=== PATIENT | male | born 1980 | race Caucasian/White ===

== ENCOUNTER 2020-07-09 12:24 | Emergency (ER) | payer SELFPAY ==
[~2020-07-09] VITALS: Ht 180.3 cm; Wt 84.1 kg
[2020-07-09 12:25] VITALS: BP 172/107
--- NOTE | 2020-07-09 12:37 | PHYS DOC ---
Past History Past Medical History: Hypertension Past Surgical History: Appendectomy Smoking: Cigarettes Alcohol Use: Heavy Drug Use: Cocaine, Marijuana General Adult EDM: Chief Complaint: CHEST PAIN HPI: HPI: Patient is a 39-year-old male who presented to ER today for evaluation of substernal chest pain started at 7 AM this morning that radiated to his left shoulder and arm. Patient denies any nausea vomiting, no sweating, no trouble breathing. Patient denies any cough or fever. Patient denies any abdominal pain. Patient denied being exposed to anybody who tested positive for COVID-19. Patient denies any family history of heart disease, no history of blood clot disorder. Patient denied travel anywhere recently. Patient is a smoker, he also admitted abusing cocaine but has not used any cocaine for the last 7 days. Patient is a heavy drinker. Review of Systems: Review of Systems: Constitutional: Denies fever or chills Eyes: Denies change in visual acuity HENT: Denies nasal congestion or sore throat Respiratory: Denies cough or shortness of breath Cardiovascular: Positive for chest pain, denies any edema. GI: Denies abdominal pain, nausea, vomiting, bloody stools or diarrhea : Denies dysuria Musculoskeletal: Denies back pain or joint pain Integument: Denies rash Neurologic: Denies headache, focal weakness or sensory changes Endocrine: Denies polyuria or polydipsia Lymphatic: Denies swollen glands Psychiatric: Denies depression or anxiety Heart Score: HEART Score for Chest Pain: HEART Score for Chest Pain Response (Comments) Value History Slighlty/Non-Suspicious 0 ECG Normal 0 Age < 45 0 Risk Factors 1 or 2 Risk Factors 1 Troponin < Normal Limit 0 Total 1 Risk Factors: Risk Factors: DM, Current or recent (<one month) smoker, HTN, HLP, family history of CAD, obesity. Risk Scores: Score 0 - 3: 2.5% MACE over next 6 weeks - Discharge Home Score 4 - 6: 20.3% MACE over next 6 weeks - Admit for Clinical Observation Score 7 - 10: 72.7% MACE over next 6 weeks - Early Invasive Strategies Physical Exam: PE: Constitutional: Well developed, well nourished, no acute distress, non-toxic appearance. [] HENT: Normocephalic, atraumatic, bilateral external ears normal, oropharynx moist, no oral exudates, nose normal. [] Eyes: PERRLA, EOMI, conjunctiva normal, no discharge. [] Neck: Normal range of motion, no tenderness, supple, no stridor. [] Cardiovascular:Heart rate regular rhythm, no murmur [] Lungs & Thorax: Bilateral breath sounds clear to auscultation [] Abdomen: Bowel sounds normal, soft, no tenderness, no masses, no pulsatile masses. [] Skin: Warm, dry, no erythema, no rash. [] Back: No tenderness, no CVA tenderness. [] Extremities: No tenderness, no cyanosis, no clubbing, ROM intact, no edema. [] Neurologic: Alert and oriented X 3, normal motor function, normal sensory function, no focal deficits noted. [] Psychologic: Affect normal, judgement normal, mood normal. [] Current Patient Data: Labs: Laboratory Tests Test 07/09/20 12:43 07/09/20 13:38 White Blood Count 8.5 x10^3/uL Red Blood Count 4.49 x10^6/uL Hemoglobin 15.4 g/dL Hematocrit 44.3 % Mean Corpuscular Volume 99 fL Mean Corpuscular Hemoglobin 34 pg Mean Corpuscular Hemoglobin Concent 35 g/dL Red Cell Distribution Width 12.8 % Platelet Count 293 x10^3/uL Neutrophils (%) (Auto) 53 % Lymphocytes (%) (Auto) 34 % Monocytes (%) (Auto) 10 % Eosinophils (%) (Auto) 2 % Basophils (%) (Auto) 1 % Neutrophils # (Auto) 4.6 x10^3uL Lymphocytes # (Auto) 2.9 x10^3/uL Monocytes # (Auto) 0.8 x10^3/uL Eosinophils # (Auto) 0.1 x10^3/uL Basophils # (Auto) 0.1 x10^3/uL Prothrombin Time 10.4 SEC Prothromb Time International Ratio 1.0 Activated Partial Thromboplast Time 28 SEC Sodium Level 141 mmol/L Potassium Level 4.0 mmol/L Chloride Level 105 mmol/L Carbon Dioxide Level 24 mmol/L Anion Gap 12 Blood Urea Nitrogen 14 mg/dL Creatinine 1.1 mg/dL Estimated GFR (Cockcroft-Gault) 74.5 BUN/Creatinine Ratio 13 Glucose Level 94 mg/dL Calcium Level 8.6 mg/dL Magnesium Level 2.1 mg/dL Total Bilirubin 0.3 mg/dL Aspartate Amino Transf (AST/SGOT) 20 U/L Alanine Aminotransferase (ALT/SGPT) 27 U/L Alkaline Phosphatase 79 U/L Troponin I Quantitative < 0.017 ng/mL [id number] Natriuretic Peptide 40 pg/mL Total Protein 7.9 g/dL Albumin 4.1 g/dL Albumin/Globulin Ratio 1.1 Lipase 136 U/L Ethyl Alcohol Level 15 mg/dL Urine Collection Type Unknown Urine Color Yellow Urine Clarity Clear Urine pH 7.0 Urine Specific Veblen 1.025 Urine Protein Neg Urine Glucose (UA) Neg mg/dL Urine Ketones (Stick) Neg mg/dL Urine Blood Neg Urine Nitrite Neg Urine Bilirubin Neg Urine Urobilinogen Dipstick 0.2 mg/dL Urine Leukocyte Esterase Neg Urine RBC 0 /HPF Urine WBC 1-4 /HPF Urine Bacteria 0 /HPF Urine Opiates Screen Neg Urine Methadone Screen Neg Urine Barbiturates Neg Urine Phencyclidine Screen Neg Urine Amphetamine/Methamphetamine Neg Urine Benzodiazepines Screen Neg Urine Cocaine Screen Pos Urine Cannabinoids Screen Pos Urine Ethyl Alcohol Pos EKG: EKG: EKG was done at 1230, heart rate of 78 bpm, normal sinus rhythm, no ST segment elevation. Normal conduction, no ectopy. [] Radiology/Procedures: Radiology/Procedures: [][address] [address] IMAGING REPORT Signed PATIENT: CIPRIANO FIELDS ACCOUNT: [id number] : 1980 LOCATION: ER AGE: 39 SEX: M EXAM STATUS: REG ER ORD. PHYSICIAN: LON COULTER DO REASON: chest pain PROCEDURE: PORTABLE CHEST 1V EXAMINATION: PORTABLE CHEST 1V CLINICAL HISTORY: Reason: chest pain / Spl. Instructions: / History: EXAM DATE/TIME: 07/09/2020 12:28 PM COMPARISON: None FINDINGS: Lines, tubes, and devices: None. Cardiomediastinal silhouette: Within normal limits. Lungs and pleura: Question minimal patchy opacities in the lower lung zones which favors subsegmental atelectasis. No large focal airspace consolidation, pleural effusion, or pneumothorax. Bones and soft tissues: No acute osseous abnormality. IMPRESSION: No definitive evidence of acute cardiopulmonary abnormality. Electronically signed by: Nithin Ye DO (07/09/2020 1:23 PM) [id number] DICTATED AND SIGNED BY: NITHIN YE DO DATE: 07/09/20 1323 CC: [facility]; LON COULTER DO ~ Course & Med Decision Making: Course & Med Decision Making Pertinent Labs and Imaging studies reviewed. (See chart for details) Patient is a 39-year-old male who was evaluated in the ER due to chest pain, his EKG and lab work came back normal. Patient was to have cocaine in his system. Patient did not want to stay in the hospital, he want to be released [facility] so he can go home and take it daughter to work. [email or web address] Disclaimer: [email or web address] Disclaimer: This electronic medical record was generated, in whole or in part, using a voice recognition dictation system. Departure Departure: Impression: Primary Impression: Chest pain Additional Impression: Substance abuse Disposition: 01 HOME/RESIDENCE PRIOR TO ADM Condition: IMPROVED Referrals: [facility] (PCP) PLEASE CALL YOUR FAMILY DOCTOR FOR FOLLOW UP Patient Instructions: Chest Pain (Nonspecific), Substance Abuse-Brief Additional Instructions: Thank you for visiting our Emergency Department. We appreciate you trusting us with your care. If any additional problems come up don't hesitate to return to visit us. Please follow up with your primary care provider so they can plan ad ditional care if needed and know about the problem that you had. If symptoms worsen come back to the Emergency Department. Any concerning symptoms that start such as chest pain, shortness of air, weakness or numbness on one side of the body, running high fevers or any other concerning symptoms return to the ER. Justification of Admission: Justification of Admission: Justification of Admission Dx: N/A LON COULTER DO Jul 09, 2020 12:37
--- NOTE | 2020-07-09 12:46 | EKG ---
[address] [address] Test Date: 2020-07-09 Test Time: 12:30:24 Pat Name: CIPRIANO FIELDS Department: Room: Gender: M Manager Animal: : 1980 Requested By: LON COULTER Order Number: [id number] Reading MD: Harpreet Ignacio MD Measurements Intervals [place] Rate: 78 P: 43 ME: 134 QRS: 43 QRSD: 82 T: 41 QT: 354 QTc: 407 Interpretive Statements SINUS RHYTHM Electronically Signed On 07-10-2020 9:11:59 CDT by Harpreet Ignacio MD
[2020-07-09 13:03] LABS: BASO # 0.1 x10^3/uL (0.0-0.2); BASO % 1 % (0-3); EOS # 0.1 x10^3/uL (0.0-0.7); EOS % 2 % (0-3); HEMATOCRIT 44.3 % (39.0-53.0); HEMOGLOBIN 15.4 g/dL (13.0-17.5); LYMPH # 2.9 x10^3/uL (1.0-4.8); LYMPH % 34 % (24-48); MEAN CORPUSCULAR HEMOGLOBIN 34 pg (25-35); MEAN CORPUSCULAR HGB CONC 35 g/dL (31-37); MEAN CORPUSCULAR VOLUME 99 fL (79-100); MONO # 0.8 x10^3/uL (0.0-1.1); MONO % 10 % (0-9); NEUT # 4.6 x10^3uL (1.8-7.7); NEUT % 53 % (31-73); PLATELET COUNT 293 x10^3/uL (140-400); RED BLOOD COUNT 4.49 x10^6/uL (4.30-5.70); RED CELL DISTRIBUTION WIDTH 12.8 % (11.5-14.5); WHITE BLOOD COUNT 8.5 x10^3/uL (4.0-11.0)
[2020-07-09 13:25] LABS: CALCIUM 8.6 mg/dL (8.5-10.1); CREATININE 1.1 mg/dL (0.7-1.3); GFR 74.5
[2020-07-09 13:26] LABS: ALBUMIN 4.1 g/dL (3.4-5.0); ALBUMIN/GLOBULIN RATIO 1.1 (1.0-1.7); TOTAL BILIRUBIN 0.3 mg/dL (0.2-1.0); TOTAL PROTEIN 7.9 g/dL (6.4-8.2)
--- NOTE | 2020-07-09 13:26 | RAD ---
EXAMINATION: PORTABLE CHEST 1V CLINICAL HISTORY: Reason: chest pain / Spl. Instructions: / History: EXAM DATE/TIME: 07/09/2020 12:28 PM COMPARISON: None FINDINGS: Lines, tubes, and devices: None. Cardiomediastinal silhouette: Within normal limits. Lungs and pleura: Question minimal patchy opacities in the lower lung zones which favors subsegmental atelectasis. No large focal airspace consolidation, pleural effusion, or pneumothorax. Bones and soft tissues: No acute osseous abnormality. IMPRESSION: No definitive evidence of acute cardiopulmonary abnormality. Electronically signed by: Nithin Swain DO (07/09/2020 1:23 PM) [id number]
[2020-07-09 13:56] LABS: AMPHETAMINE/METHAMPHETAMINE NEG (NEG); BARBITURATES NEG (NEG); BENZODIAZEPINES NEG (NEG); CANNABINOIDS POS (NEG); COCAINE POS (NEG); METHADONE NEG (NEG); OPIATES NEG (NEG); PHENCYCLIDINE NEG (NEG)
[2020-07-09 14:04] LABS: BILIRUBIN,URINE NEG (NEG); CLARITY,URINE CLEAR; COLOR,URINE YELLOW; GLUCOSE,URINE NEG (NEG)
[2020-07-09 14:05] LABS: BACTERIA,URINE 0 /HPF (0-FEW); NITRITE,URINE NEG (NEG); RBC,URINE 0 /HPF (0-2); UROBILINOGEN,URINE 0.2 mg/dL (0.2 mg/dL)
== END 2020-07-09 15:57 | disposition home or self-care (01) ==
LOC: ER 12:24
DX: R07.2 Precordial pain (principal); F19.10 Other psychoactive substance abuse, uncomplicated; I10 Essential (primary) hypertension; F17.210 Nicotine dependence, cigarettes, uncomplicated; F12.10 Cannabis abuse, uncomplicated; F14.10 Cocaine abuse, uncomplicated
CPT/HCPCS: 36415; 71045; 80053; 80307; 81001; 83690; 83735; 83880; 84484; 85025; 85610; 85730; 93005; 99285; G0480